=== PATIENT | male | born 1995 | race Caucasian/White ===

== ENCOUNTER 2018-08-27 21:01 | Emergency (ER) | payer MEDICAID, OTHER ==
[~2018-08-27] VITALS: Ht 160 cm; Wt 77.0 kg
[2018-08-27] MEDS ORDERED: constipation med PO (21:28)
[2018-08-27] MEDS ORDERED: DiphenhydrAMINE HCL 25 MG/10 ML ELIXIR UDCUP PO ONE (22:30)
[2018-08-27] MEDS ORDERED: ACETAMINOPHEN 160 MG/5 ML SUSPENSION UDCUP PO ONE (22:30)
[2018-08-27 22:59] VITALS: BP 119/76
== END 2018-08-27 23:03 | disposition home or self-care (01) ==
LOC: EMS 21:02
DX: R46.89 Other symptoms and signs involving appearance and behavior (principal); L30.9 Dermatitis, unspecified

== ENCOUNTER 2019-02-15 06:26 | Day surgery (SDC) | payer OTHER ==
[~2019-02-15] VITALS: Ht 167.6 cm; Wt 72.7 kg
[~2019-02-15 06:26] MED LIST: BACL10TA PO; RINGERS SOLUTION,LACTATED 1,000 ML IV ONE; VITAD400 PO; constipation med PO
[2019-02-15] MEDS ORDERED: AMPICILLIN SODIUM 1 GM/VIAL ONE (07:12)
[2019-02-15] MEDS ORDERED: MIDAZOLAM HCL 5 MG/ML VIAL ONE (07:34)
[2019-02-15 07:53] LABS: EOSINOPHILS % (AUTO) 3.6 % (1.0-6.0); HEMATOCRIT 47.9 % (41-53); HEMOGLOBIN 16.3 g/dL (13.5-17.5); LYMPHOCYTES # (AUTO) 2.1 K/uL (1.0-4.8); LYMPHOCYTES % (AUTO) 26.8 % (22.0-44.0); MEAN CORPUSCULAR HEMOGLOBIN 29.7 pg (26.0-34.0); MEAN CORPUSCULAR VOLUME 87 fL (80-100); MONOCYTES # (AUTO) 0.4 K/uL (0.1-1.0); MONOCYTES % (AUTO) 5.3 % (2.0-9.0); NEUTROPHILS # (AUTO) 5.1 K/uL (1.8-7.7); NEUTROPHILS % (AUTO) 63.3 % (40.0-70.0); PLATELET COUNT (AUTO) 275 K/uL (150-450); RED BLOOD CELL COUNT(AUTO) 5.48 MIL/uL (4.50-5.90); RED CELL DISTRIBUTION WIDTH 13.8 % (11.5-14.5)
[2019-02-15 08:01] LABS: ANION GAP 11 mmol/L (8-16); CALCIUM, TOTAL 9.2 mg/dL (8.8-10.5); CARBON DIOXIDE 25 mmol/L (22-29); CHLORIDE 104 mmol/L (98-107); CREATININE 0.58 mg/dL (0.60-1.30); GLOMERULAR FILTR. RATE CALC > 60 mL/min (>60); GLUCOSE,RANDOM 95 mg/dL (70-110); POTASSIUM 3.6 mmol/L (3.5-5.1); SODIUM SERUM 140 mmol/L (136-145); UREA NITROGEN, BLOOD 10 mg/dL (7-18)
[2019-02-15 08:05] LABS: PROTHROMBIN TIME 10.6 SEC (9.4-11.6)
[2019-02-15 08:07] LABS: ALANINE AMINOTRANSFERASE 49 U/L (12-78); ALBUMIN 3.9 g/dL (3.4-5.0); ALKALINE PHOSPHATASE 116 U/L (46-116); ASPARTATE AMINOTRANSFERASE 21 U/L (15-37); BILIRUBIN,TOTAL 0.5 mg/dL (0.1-1.0); TOTAL PROTEIN, SERUM 7.9 g/dL (6.4-8.2)
[2019-02-15] MEDS: RINGERS SOLUTION,LACTATED 1,000 ML IV ONE (08:09)
[2019-02-15] MEDS ORDERED: RINGERS SOLUTION,LACTATED 1,000 ML IV ONE (10:04)
[2019-02-15] MEDS ORDERED: SUGAMMADEX SODIUM 200 MG/2 ML VIAL IVP ONE (10:06)
[2019-02-15] MEDS ORDERED: ESMOLOL HCL 10 MG/ML 10 ML VIAL IVP ONE (12:00)
[2019-02-15] MEDS ORDERED: ONDANSETRON HCL 4 MG/2 ML VIAL IVP ONE (12:00)
[2019-02-15] MEDS ORDERED: KETAMINE HCL 50 MG/ML 10 ML VIAL IVP ONE (12:00)
[2019-02-15] MEDS ORDERED: LIDOCAINE/PF 2% 5 ML VIAL INJ ONE (12:00)
[2019-02-15] MEDS ORDERED: DEXAMETHASONE SOD PHOS 4 MG/ML VIAL IVP ONE (12:00)
[2019-02-15] MEDS ORDERED: PROPOFOL 1% 20 ML VIAL IVP ONE (12:00)
[2019-02-15] MEDS ORDERED: FentaNYL CITRATE-PF 100 MCG/2 ML VIAL IVP ONE (12:00)
[2019-02-15] MEDS ORDERED: ROCURONIUM BROMIDE 10 MG/ML 5 ML VIAL IVP ONE (12:00)
== END 2019-02-15 11:45 | disposition home or self-care (01) ==
LOC: SURGERY 06:26
PROVIDERS: ATTEND Dentist General Practice
DX: K05.30 Chronic periodontitis, unspecified (principal); K03.6 Deposits [accretions] on teeth; K21.9 Gastro-esophageal reflux disease without esophagitis; G82.20 Paraplegia, unspecified; Z93.0 Tracheostomy status; Z98.890 Other specified postprocedural states
CPT/HCPCS: 36415; 41899; 71045; 80053; 85025; 85610; 85730; 93005; J0290; J1100; J2250; J2405; J2704; J3010; J3490 ×4; J7120

== ENCOUNTER 2020-04-10 07:47 | Day surgery (SDC) | payer OTHER ==
[~2020-04-10] VITALS: Ht 160 cm; Wt 76.8 kg
[~2020-04-10 07:47] MED LIST changes: -BACL10TA PO; -VITAD400 PO; -constipation med PO
[2020-04-10] MEDS ORDERED: FentaNYL CITRATE-PF 100 MCG/2 ML VIAL IVP ONE (07:48)
[2020-04-10 08:41] LABS: BASOPHILS % (AUTO) 0.9 % (0.0-2.0); EOSINOPHILS % (AUTO) 3.9 % (1.0-6.0); HEMATOCRIT 47.3 % (41-53); HEMOGLOBIN 16.1 g/dL (13.5-17.5); LYMPHOCYTES # (AUTO) 3.4 K/uL (1.0-4.8); LYMPHOCYTES % (AUTO) 32.2 % (22.0-44.0); MEAN CORPUSCULAR HEMOGLOBIN 30.6 pg (26.0-34.0); MEAN CORPUSCULAR HGB CONC 34.1 G/dL (31.0-37.0); MEAN CORPUSCULAR VOLUME 90 fL (80-100); MONOCYTES # (AUTO) 0.5 K/uL (0.1-1.0); MONOCYTES % (AUTO) 4.7 % (2.0-9.0); NEUTROPHILS # (AUTO) 6.1 K/uL (1.8-7.7); NEUTROPHILS % (AUTO) 58.3 % (40.0-70.0); PLATELET COUNT (AUTO) 274 K/uL (150-450); RED BLOOD CELL COUNT(AUTO) 5.28 MIL/uL (4.50-5.90); RED CELL DISTRIBUTION WIDTH 13.7 % (11.5-14.5)
[2020-04-10 08:52] LABS: ANION GAP 7 mmol/L (8-16); CALCIUM, TOTAL 9.5 mg/dL (8.8-10.5); CARBON DIOXIDE 28 mmol/L (22-29); CHLORIDE 105 mmol/L (98-107); CREATININE 0.64 mg/dL (0.60-1.30); GLOMERULAR FILTR. RATE CALC > 60 mL/min (>60); GLUCOSE,RANDOM 103 mg/dL (70-110); POTASSIUM 3.9 mmol/L (3.5-5.1); SODIUM SERUM 140 mmol/L (136-145); UREA NITROGEN, BLOOD 11 mg/dL (7-18)
[2020-04-10 08:55] LABS: PROTHROMBIN TIME 10.9 SEC (9.4-11.6)
[2020-04-10 08:58] LABS: ALANINE AMINOTRANSFERASE 60 U/L (12-78); ALKALINE PHOSPHATASE 115 U/L (46-116); ASPARTATE AMINOTRANSFERASE 25 U/L (15-37); BILIRUBIN,TOTAL 0.6 mg/dL (0.1-1.0); TOTAL PROTEIN, SERUM 8.3 g/dL (6.4-8.2)
[2020-04-10] MEDS ORDERED: AMPICILLIN SODIUM 1 GM/VIAL ONE (09:34)
[2020-04-10] MEDS ORDERED: SODIUM CHLORIDE 0.9% 100 ML ONE (09:35)
[2020-04-10] MEDS ORDERED: LIDOCAINE 1%/EPI 1:200,000/PF 10 ML VIAL ONE (09:51)
[2020-04-10] MEDS ORDERED: MEPERIDINE-PF 25 MG/ML VIAL IVP PRN (10:30)
[2020-04-10] MEDS ORDERED: HYDROmorphone 2 MG/ML SYRINGE IVP PRN (10:30)
[2020-04-10] MEDS ORDERED: FentaNYL CITRATE-PF 100 MCG/2 ML VIAL IVP PRN (10:30)
[2020-04-10] MEDS ORDERED: SUCCINYLCHOLINE CHLORIDE 20 MG/ML 10 ML VIAL IVP ONE (12:00)
[2020-04-10] MEDS ORDERED: ONDANSETRON HCL 4 MG/2 ML VIAL IVP ONE (12:00)
[2020-04-10] MEDS ORDERED: PROPOFOL 1% 20 ML VIAL IVP ONE (12:00)
[2020-04-10] MEDS ORDERED: DEXAMETHASONE SOD PHOS 4 MG/ML VIAL IVP ONE (12:00)
[2020-04-10] MEDS ORDERED: LIDOCAINE/PF 2% 5 ML VIAL INJ ONE (12:00)
[2020-04-10] MEDS ORDERED: OXYGEN THERAPY IH SCH (20:00)
== END 2020-04-10 12:00 | disposition home or self-care (01) ==
LOC: SURGERY 07:47
PROVIDERS: ATTEND Dentist General Practice
DX: K05.30 Chronic periodontitis, unspecified (principal); K03.6 Deposits [accretions] on teeth; G80.9 Cerebral palsy, unspecified; K21.9 Gastro-esophageal reflux disease without esophagitis; Z98.890 Other specified postprocedural states; Z93.0 Tracheostomy status
CPT/HCPCS: 36415; 41899; 71045; 80053; 85025; 85610; 85730; 87635; 93005; J0290; J7050; J7120; J0330; J1100; J2405; J2704; J3010; J3490

== ENCOUNTER 2023-04-14 06:37 | Day surgery (SDC) | payer OTHER ==
[~2023-04-14] VITALS: Ht 160 cm; Wt 77.3 kg
[2023-04-14] MEDS ORDERED: SUGAMMADEX SODIUM 200 MG/2 ML VIAL IVP ONE (06:38)
[2023-04-14] MEDS ORDERED: ROCURONIUM BROMIDE 10 MG/ML 5 ML VIAL IVP ONE (06:38)
[2023-04-14] MEDS ORDERED: ONDANSETRON HCL 4 MG/2 ML VIAL IVP ONE (06:38)
[2023-04-14] MEDS ORDERED: PROPOFOL 1% 20 ML VIAL IVP ONE (06:38)
[2023-04-14] MEDS ORDERED: DEXAMETHASONE SOD PHOS 4 MG/ML VIAL IVP ONE (06:38)
[2023-04-14] MEDS ORDERED: RINGERS SOLUTION,LACTATED 1,000 ML IV ONE (07:00)
[2023-04-14 07:35] LABS: BASOPHILS % (AUTO) 0.9 % (0.0-2.0); EOSINOPHILS % (AUTO) 1.6 % (1.0-6.0); HEMOGLOBIN 16.7 g/dL (13.5-17.5); LYMPHOCYTES # (AUTO) 2.4 K/uL (1.0-4.8); LYMPHOCYTES % (AUTO) 25.8 % (22.0-44.0); MEAN CORPUSCULAR HEMOGLOBIN 29.6 pg (26.0-34.0); MEAN CORPUSCULAR HGB CONC 33.5 G/dL (31.0-37.0); MEAN CORPUSCULAR VOLUME 88 fL (80-100); MONOCYTES # (AUTO) 0.6 K/uL (0.1-1.0); MONOCYTES % (AUTO) 6.3 % (2.0-9.0); NEUTROPHILS # (AUTO) 6.1 K/uL (1.8-7.7); NEUTROPHILS % (AUTO) 65.4 % (40.0-70.0); PLATELET COUNT (AUTO) 295 K/uL (150-450); RED BLOOD CELL COUNT(AUTO) 5.66 MIL/uL (4.50-5.90); RED CELL DISTRIBUTION WIDTH 14.4 % (11.5-14.5)
[2023-04-14 07:42] LABS: ANION GAP 11 mmol/L (8-16); CALCIUM, TOTAL 9.1 mg/dL (8.8-10.5); CARBON DIOXIDE 26 mmol/L (22-29); CHLORIDE 102 mmol/L (98-107); CREATININE 0.52 mg/dL (0.60-1.30); GLOMERULAR FILTR. RATE CALC > 60 mL/min (>60); GLUCOSE,RANDOM 122 mg/dL (70-110); POTASSIUM 3.7 mmol/L (3.5-5.1); SODIUM SERUM 139 mmol/L (136-145)
[2023-04-14 07:45] LABS: PROTHROMBIN TIME 10.6 SEC (9.4-11.6)
[2023-04-14 07:48] LABS: ALANINE AMINOTRANSFERASE 68 U/L (12-78); ALBUMIN 3.7 g/dL (3.4-5.0); ALKALINE PHOSPHATASE 126 U/L (46-116); ASPARTATE AMINOTRANSFERASE 29 U/L (15-37); BILIRUBIN,TOTAL 0.4 mg/dL (0.1-1.0)
[2023-04-14] MEDS ORDERED: AMPICILLIN SODIUM 2 GM/NS 100 ML IV ONE (07:53)
== END 2023-04-14 14:00 | disposition home or self-care (01) ==
LOC: SURGERY 06:37
PROVIDERS: ATTEND Dentist General Practice
DX: K05.30 Chronic periodontitis, unspecified (principal); K02.9 Dental caries, unspecified; K11.20 Sialoadenitis, unspecified; K03.6 Deposits [accretions] on teeth; Z79.01 Long term (current) use of anticoagulants; Z79.899 Other long term (current) drug therapy; K21.9 Gastro-esophageal reflux disease without esophagitis; K59.00 Constipation, unspecified; G80.9 Cerebral palsy, unspecified; Z98.890 Other specified postprocedural states
CPT/HCPCS: 41899; 71045; 80053; 85025; 85610; 85730; 36415; 93005; J0290; J2704; J1100; J2405; J3490; Q9967; J7120

== ENCOUNTER 2024-04-25 11:29 | Emergency (ER) | payer OTHER ==
[~2024-04-25] VITALS: Ht 157.5 cm; Wt 63.6 kg
[2024-04-25 11:48] VITALS: TEMP 98.6
[2024-04-25 12:49] LABS: PROTHROMBIN TIME 10.5 SEC (9.4-11.6)
[2024-04-25 12:51] LABS: ANION GAP 21 mmol/L (8-16); CALCIUM, TOTAL 9.5 mg/dL (8.8-10.5); CARBON DIOXIDE 18 mmol/L (22-29); CHLORIDE 101 mmol/L (98-107); CREATININE 0.98 mg/dL (0.60-1.30); GLOMERULAR FILTR. RATE CALC > 60 mL/min (>60); GLUCOSE,RANDOM 135 mg/dL (70-110); POTASSIUM 3.9 mmol/L (3.5-5.1); SODIUM SERUM 140 mmol/L (136-145); UREA NITROGEN, BLOOD 9 mg/dL (7-18)
[2024-04-25 12:59] LABS: TROPONIN I-HIGH SENSITIVITY Less Than 4 ng/L (<76)
[2024-04-25 13:04] LABS: BASOPHILS % (AUTO) 0.3 % (0.0-2.0); EOSINOPHILS % (AUTO) 1.4 % (1.0-6.0); HEMATOCRIT 49.7 % (41-53); HEMOGLOBIN 16.5 g/dL (13.5-17.5); LYMPHOCYTES # (AUTO) 1.2 K/uL (1.0-4.8); LYMPHOCYTES % (AUTO) 6.4 % (22.0-44.0); MEAN CORPUSCULAR HEMOGLOBIN 29.7 pg (26.0-34.0); MEAN CORPUSCULAR HGB CONC 33.2 G/dL (31.0-37.0); MEAN CORPUSCULAR VOLUME 89 fL (80-100); MONOCYTES # (AUTO) 0.9 K/uL (0.1-1.0); MONOCYTES % (AUTO) 4.8 % (2.0-9.0); NEUTROPHILS # (AUTO) 16.2 K/uL (1.8-7.7); PLATELET COUNT (AUTO) 367 K/uL (150-450); RED BLOOD CELL COUNT(AUTO) 5.56 MIL/uL (4.50-5.90); RED CELL DISTRIBUTION WIDTH 14.1 % (11.5-14.5); WHITE BLOOD COUNT (AUTO) 18.6 K/uL (4.5-11.0)
[2024-04-25 13:06] LABS: NEUTROPHILS % (AUTO) 87.1 % (40.0-70.0)
[2024-04-25 13:16] LABS: ALANINE AMINOTRANSFERASE 49 U/L (12-78); ALBUMIN 3.8 g/dL (3.4-5.0); ALKALINE PHOSPHATASE 146 U/L (46-116); ASPARTATE AMINOTRANSFERASE 34 U/L (15-37); BILIRUBIN,TOTAL 0.5 mg/dL (0.1-1.0); CREATINE KINASE, TOTAL ONLY 99 U/L (39-308); TOTAL PROTEIN, SERUM 8.9 g/dL (6.4-8.2)
[2024-04-25 13:30] LABS: PLATELET MORPHOLOGY COMMENT LARGE PLTS PRESENT; RBC MORPHOLOGY COMMENT NORMAL RBC MORPH
[2024-04-25] MEDS: LevETIRAcetam 500 MG TABLET PO ONE (14:49)
[2024-04-25] MEDS: SODIUM CHLORIDE 0.9% 1,000 ML IV ONE (14:49)
[2024-04-25] MEDS: LevETIRAcetam 1,000 MG in DEXTROSE 5%-WATER 100 ML IV ONE (15:43)
[2024-04-25 15:45] VITALS: BP 136/78; PULSE 109; RESP 16
[2024-04-25] MEDS: CefTRIAXone 1 GM/DEXTROSE 50 ML IV ONE (16:59)
== END 2024-04-25 18:09 | disposition home or self-care (01) ==
LOC: EMS 12:33
DX: G40.909 Epilepsy, unspecified, not intractable, without status epilepticus (principal); D72.829 Elevated white blood cell count, unspecified; Z98.890 Other specified postprocedural states
CPT/HCPCS: 99291; 74176; 96365; 96367; 96361; 80053; 82550; 84484; 85025; 85610; 85730; 36415; 71045; 93005; J0712; J0696; J7060; J7030